=== PATIENT | male | born 1980 | race Caucasian/White ===

== ENCOUNTER 2018-01-01 09:14 | Emergency (ER) | payer OTHER ==
[2018-01-01 09:22] VITALS: BP 127/63; PULSE 106; RESP 16; TEMP 97; O2SAT 100
[2018-01-01] MEDS ORDERED: Sodium Chloride 0.9% 1,000 ML IV STA (10:15)
[2018-01-01 10:54] LABS: BASO # 0.1 K/uL (0.0-0.2); BASO % 0.8 % (0.0-2.0); EOS # 0.1 K/uL (0.0-0.7); EOS % 1.3 % (0.0-4.0); HEMOGLOBIN 16.2 g/dL (12.0-18.0); LYMPH # 2.1 K/uL (1.0-4.3); LYMPH % 31.6 % (20.0-40.0); MEAN CELL VOLUME 87.6 fl (80.0-94.0); MEAN CORPUSCULAR HEMOGLOBIN 29.8 pg (27.0-31.0); MEAN PLATELET VOLUME 7.9 fl (7.2-11.7); MONO # 0.6 K/uL (0.0-0.8); MONO % 8.9 % (0.0-10.0); NEUT # 3.8 K/uL (1.8-7.0); NEUT % 57.4 % (50.0-75.0); NRBC % 0.2 % (0.0-0.0); RBC 5.43 Mil/uL (4.40-5.90); RED CELL DISTRIBUTION WIDTH 13.1 % (11.5-14.5); WHITE BLOOD COUNT 6.7 K/uL (4.8-10.8)
--- NOTE | 2018-01-01 11:07 | CT ---
PROCEDURE: CT HEAD WITHOUT CONTRAST. HISTORY: pain COMPARISON: None available. TECHNIQUE: Axial computed tomography images were obtained through the head/brain without intravenous contrast. Radiation dose: Total exam DLP = 858.39 mGy-cm. This CT exam was performed using one or more of the following dose reduction techniques: Automated exposure control, adjustment of the mA and/or kV according to patient size, and/or use of iterative reconstruction technique. FINDINGS: HEMORRHAGE: No intracranial hemorrhage. BRAIN: No mass effect or edema. No atrophy or chronic microvascular ischemic changes. VENTRICLES: Unremarkable. No hydrocephalus. CALVARIUM: Unremarkable. PARANASAL SINUSES: Unremarkable as visualized. No significant inflammatory changes. MASTOID AIR CELLS: Unremarkable as visualized. No inflammatory changes. OTHER FINDINGS: There are partially calcified lesions at the scalp of uncertain etiology. IMPRESSION: No evidence of acute intracranial hemorrhage intracranial collection mass effect or midline shift. Round calcified lesions in the scalp of uncertain etiology.
--- NOTE | 2018-01-01 11:13 | CT ---
PROCEDURE: CT MAXILLOFACIAL BONES WITHOUT CONTRAST HISTORY: pain COMPARISON: None TECHNIQUE: Contiguous axial CT images of the maxillofacial bones were obtained. Coronal and sagittal reformats were generated. Radiation dose: Total exam DLP = 917.45 mGy-cm. This CT exam was performed using one or more of the following dose reduction techniques: Automated exposure control, adjustment of the mA and/or kV according to patient size, and/or use of iterative reconstruction technique. FINDINGS: NASAL BONES: Unremarkable. ORBITS: Unremarkable. PARANASAL SINUSES/ MASTOIDS: Mild mucosal thickening noted at the inferior aspect of the right maxillary sinus without evidence of air-fluid level. MAXILLA: Unremarkable. MANDIBLE/ TEMPOROMANDIBULAR JOINTS: Unremarkable. SKULL BASE: Unremarkable. TEMPORAL BONES: Middle ears and mastoid grossly unremarkable. OTHER FINDINGS: Mucosal thickening and congestion noted at the right nasal cavity IMPRESSION: Mild mucosal thickening noted at the right maxillary sinus without evidence of air-fluid level. Mucosal thickening and congestion noted at the right nasal cavity.
[2018-01-01 11:16] LABS: ALB/GLOB RATIO 1.6 (1.0-2.1); ALBUMIN 4.8 g/dL (3.5-5.0); ALT/SGPT 29 U/L (21-72); AST/SGOT 28 U/L (17-59); BLOOD UREA NITROGEN 16 mg/dl (9-20); GFR AFRICAN-AMERICAN > 60; GFR NON-AFRICAN AMERICAN > 60
[2018-01-01] MEDS ORDERED: Oxycodone/Acetaminophen 5/325 mg Tab PO STA (12:13)
[2018-01-01] MEDS ORDERED: Oxycodone/Acetaminophen 5/325 mg Tab ONE (12:24)
--- NOTE | 2018-01-01 15:27 | ED PDOC ---
HPI: General Adult Time Seen by Provider: 01/01/18 09:24 Chief Complaint (Nursing): Medical Clearance History Per: Patient Additional Complaint(s): Pt. states for the past 3 weeks he's had R sided facial pain. Two weeks ago he saw his dentist who performed x-rays of the area which were negative. He then f/ u with an ENT doctor (pt. forgot her name). States she used a camera to look in his nose but did not find anything. He was prescribed a nasal spray and cough medication which did not provide any relief. Denies trauma, fever, numbness, tingling, weakness, dental pain, nasal congestion. Past Medical History Reviewed: Historical Data, Nursing Documentation, Vital Signs Vital Signs: Last Vital Signs Temp 97.0 F L 01/01/18 09:18 Pulse 106 H 01/01/18 09:18 Resp 16 01/01/18 09:18 BP 127/63 01/01/18 09:18 Pulse Ox 100 01/01/18 09:18 - Medical History PMH: Migraine - Family History Family History: States: No Known Family Hx - Home Medications Home Medications: Ambulatory Orders Medication Instructions Recorded Amoxicillin/Clavulanate [Augmentin 1 tab PO TID #30 tab 01/01/18 500 MG-125 MG] Naproxen [Naprosyn] 500 mg PO BID PRN #30 tab 01/01/18 - Allergies Allergies/Adverse Reactions: Allergies Allergy/AdvReac Type Severity Reaction Status Date / Time No Known Allergies Allergy Verified 01/01/18 09:18 Review of Systems ROS Statement: Except As Marked, All Systems Reviewed And Found Negative Physical Exam - Physical Exam Appears: Positive for: Well, Non-toxic, No Acute Distress Head Exam: Positive for: ATRAUMATIC, NORMAL INSPECTION, NORMOCEPHALIC Skin: Positive for: Normal Color, Warm. Negative for: Rash Eye Exam: Positive for: EOMI, Normal appearance, PERRL ENT: Positive for: TM Is/Are (non-erythematous, non-bulging b/l), Sinus Pain/ Drainage (R malar tenderness with minimal swelling to nasal fold), Hearing Is ( grossly intact). Negative for: Pharyngeal Erythema, Tonsillar Exudate, Tonsillar Swelling Neck: Positive for: Normal, Painless ROM Cardiovascular/Chest: Positive for: Regular Rate, Rhythm Respiratory: Positive for: CNT, Normal Breath Sounds Gastrointestinal/Abdominal: Positive for: Normal Exam, Soft. Negative for: Tenderness Back: Positive for: Normal Inspection Extremity: Positive for: Normal ROM Neurologic/Psych: Positive for: Alert, Oriented. Negative for: Aphasia, Facial Droop - Laboratory Results Result Diagrams: 01/01/18 10:35 01/01/18 10:35 - ECG O2 Sat by Pulse Oximetry: 100 - Progress ED Course And Treament: Labs ordered. Toradol 30mg IV, reglan 10mg IV, percocet 1 tab PO, IV NS bolus x [address] head w/o contrast: negative CT maxillofacial w/o contrast: mild mucosal thickening of R maxillary sinus without air fluid levels; nasal congestion in R nasal cavity Disposition - Clinical Impression Clinical Impression: Sinusitis, acute - Patient ED Disposition Is Patient to be Admitted: No - Disposition Disposition: Routine/Home Disposition Time: 12:13 Condition: IMPROVED Prescriptions: Amoxicillin/Clavulanate [Augmentin 500 MG-125 MG] 1 tab PO TID #30 tab Naproxen [Naprosyn] 500 mg PO BID PRN #30 tab PRN Reason: Pain Instructions: Sinusitis (ED) Forms: [employer] ([place]), [facility] ED School/Work Excuse Print Language: TELUGU
== END 2018-01-01 12:51 | disposition home or self-care (01) ==
LOC: H.ER 09:14
DX: J01.90 Acute sinusitis, unspecified (principal)
CPT/HCPCS: 70450; 70486; 80053; 85025; 96374; 99284; J1885; J2765; J7040